=== PATIENT | male | born 1980 | race Two or more races ===

== ENCOUNTER 2024-09-05 11:55 | Emergency (ER) | payer MEDICAID, SELFPAY ==
[2024-09-05 11:56] VITALS: BMI 38.2
[2024-09-05 12:12] VITALS: BP 143/93; PULSE 91; RESP 18; TEMP 38.6; O2SAT 97
--- NOTE | 2024-09-05 12:22 | PD.EDURI ---
Upper Respiratory Inf. RME/HPI General Chief Complaint: Flu Like Symptoms Stated Complaint: FEVER, CHILLS, BODYACHES, TAPIA Time Seen by Provider: 09/05/24 12:01 Arrival date/time: 09/05/24 11:55 43-year-old male presents the emergency department complains of fever, body aches, chills, headache runny nose and congestion as well as nausea vomiting. Patient for symptoms onset 3 days ago Limitations: no limitations Related Data Previous Rx's ?Medication ?Instructions ?Recorded hydrocodone 5 mg-acetaminophen 325 1 tab PO Q6H #10 tabs 12/21/ mg tablet ([place]) ibuprofen 600 mg tablet 600 mg PO Q8H PRN fever or pain 10/25/21 #30 tabs meclizine 25 mg tablet 25 mg PO QDAY PRN dizziness #10 03/04/22 tabs ondansetron 4 mg disintegrating 4 mg PO Q6H PRN nausea and 09/05/24 tablet vomiting #14 tabs Allergies Allergy/AdvReac Type Severity Reaction Status Date / Time ceftriaxone Allergy Severe RASH Verified 09/05/24 11:59 Review of Systems Review of Systems Systems Reviewed: All systems reviewed, normal except as documented Constitutional Constitutional: Reports system reviewed and no additional complaints, except as documented, Reports body ache(s), Reports chills, Reports fatigue, Reports fever(s) and Reports headache(s) Eyes Eyes: Reports system reviewed and no additional complaints, except as documented and Denies blurry vision ENT Ears, Nose, Mouth, and Throat: Reports system reviewed and no additional complaints, except as documented, Reports headache(s), Reports nasal congestion and Reports nasal discharge Cardiovascular Cardiovascular: Reports system reviewed and no additional complaints, except as documented, Denies chest pain and Denies dyspnea Respiratory Respiratory: Reports system reviewed and no additional complaints, except as documented, Denies chest congestion, Denies cough and Denies dyspnea Gastrointestinal Gastrointestinal: Reports system reviewed and no additional complaints, except as documented, Denies abdominal pain, Reports loose stools, Denies melena, Reports nausea, Denies tenesmus and Reports vomiting Integumentary/Breasts Skin/Breast: Reports system reviewed and no additional complaints, except as documented and Denies rash Neurologic Neurologic: Reports system reviewed and no additional complaints, except as documented, Reports as per HPI and Reports headache(s) Endocrine Endocrine: Reports fatigue Past Medical History Past Medical History CARDIAC: Negative Congestive Heart Failure RESPIRATORY: Negative Chronic Obstructive Pulmonary Disease (COPD) GENITOURINARY: Negative Renal Disease ENDOCRINE: Negative Diabetes Mellitus Type 1 or Diabetes Mellitus Type 2 PSYCHO/SOCIAL: Positive Anxiety Social History SMOKING STATUS: Never smoker ED Exam General Limitations: Present no limitations General appearance: Present alert and in no apparent distress Head Head exam: Present atraumatic Eye Eye exam: Present normal appearance, PERRL and EOMI; Absent conjunctival injection ENT ENT exam: Present normal exam, normal oropharynx and mucous membranes moist Neck Neck exam: Present normal inspection, full ROM and trachea midline Chest Chest inspection: Present normal inspection and symmetric chest wall rise Respiratory Respiratory exam: Present normal lung sounds bilaterally; Absent respiratory distress Cardiovascular Cardiovascular exam: Present regular rate, normal rhythm and normal heart sounds Abdominal Exam Abdominal exam: Present soft and normal bowel sounds; Absent distention, tenderness, guarding, rebound or rigidity Extremities Exam Extremities exam: Present normal inspection and full ROM Back Exam Back exam: Present normal inspection and full ROM Neurological Exam Neurological exam: Present alert, oriented X3, CN II-XII intact, normal gait and reflexes normal; Absent motor sensory deficit Psychiatric Psychiatric exam: Present normal affect and normal mood Skin Skin exam: Present warm, dry, intact and normal color; Absent rash Course Quality Measures none Orders Category Date Time Status Bedside Influenza A&B Antigen Test NOW Care 09/05/24 12:24 Completed Ibuprofen Tab [Motrin Tab] Med 09/05/24 12:24 Discontinued 800 mg PO X1 ONE Metoclopramide Inj [Reglan Inj] Med 09/05/24 12:24 Discontinued 10 mg IM X1 ONE Vital Signs Vital signs: Vital Signs Temperature 101.4 F H 09/05/24 12:12 Pulse Rate 91 09/05/24 12:12 Respiratory Rate 18 09/05/24 12:12 Blood Pressure 143/93 H 09/05/24 12:12 Pulse Oximetry (%) 97 09/05/24 12:12 Oxygen Delivery Method Room Air 09/05/24 12:12 O2 saturation 97% room air within normal limits Upper Respiratory Infection MDM Narrative MDM Narrative:: 43-year-old male with no significant medical problems presents the emergency department complains of fever, body aches, chills, headache runny nose and congestion as well as nausea vomiting. Patient for symptoms onset 3 days ago On exam despite patient having a fever patient does not appear ill or toxic Patient checked for the flu which came back positive immediately Symptoms are highly consistent with influenza Patient given ibuprofen for fever and bodyaches and patient given Reglan for nausea and vomiting Patient discharged home in no distress to follow-up with primary care doctor in the next 24 to 48 hours and for any worsening symptoms to return to the ER immediately Patient data External records reviewed:: [facility] previous records Clinical information provided by:: patient Social determinants that could affect healthcare access:: none Patient has the following chronic illnesses:: None How is presenting disease/condition affected by chronic disease/condition?: no chronic disease Evaluation data The following diagnostics were reviewed and interpreted by me:: lab results Lab and/or radiology exams considered but not ordered:: Labs obtained Interpretation Summary: Reviewed by me Medications / Prescriptions Medications or Prescriptions considered but not ordered:: Given Medication administrations:: Medication Administration History Discontinued Medications Ibuprofen (Ibuprofen Tab 400 Mg Tablet) 800 mg PO X1 ONE Stop: 09/05/24 12:25 Last Admin: 09/05/24 12:29 Dose: 800 mg Documented By: Metoclopramide HCl (Metoclopramide Inj 5 Mg/Ml Vial 2 Ml) 10 mg IM X1 ONE; Protocol Stop: 09/05/24 12:25 Last Admin: 09/05/24 12:29 Dose: 10 mg Documented By: Given Consultations Consultation(s) initiated? (list below): No Diagnosis Upper Respiratory Differential Diagnosis: upper respiratory infection, otitis media, sinusitis, viral infection, bronchitis and pharyngitis Most likely diagnosis given after review of the tests above:: URI Admission Indicated Admission indicated?: not indicated Admission Request Was there a request for admission?: No Disposition Plan Disposition Plan: Discharge Discharge Attestation Discharge Attestation: The patient and all family members were given an opportunity to ask questions and understood the discharge instructions. Discharge instructions specifically effects, indications for sooner follow up or return to the emergency department, and the expected course of current diagnosis. Patient condition: Stable Discharge Plan Plan Patient Disposition: HOME (Self Care) Disposition Comment: Stable Prescriptions/Referrals Prescriptions/Med Rec: New ondansetron 4 mg tablet,disintegrating 4 mg PO Q6H PRN (Reason: nausea and vomiting) Qty: 14 0RF No Action meclizine 25 mg tablet 25 mg PO QDAY PRN (Reason: dizziness) Qty: 10 0RF hydrocodone-acetaminophen [[place]] 5-325 mg tablet 1 tab PO Q6H MDD 2 tabs Qty: 10 0RF ibuprofen 600 mg tablet 600 mg PO Q8H PRN (Reason: fever or pain) Qty: 30 0RF Problem List Clinical Impression: Influenza Patient/Caregiver Discharge Instructions Education Materials: ED Influenza (Adult) Additional Instructions: Please follow up with your primary care doctor in the next 24-48hrs for any worsening symptoms return here immediately Print Language: Chinese Stand Alone Forms: [facility] Award Info., Patient Portal Info Letter PA/AIRPLANE NAVIGATOR Supervising Physician PA/AIRPLANE NAVIGATOR Supervising Physician: Dr Humphries
[2024-09-05] MEDS: METOCLOPRAMIDE INJ 5 MG/ML VIAL 2 ML 10 MG IM (12:29)
[2024-09-05] MEDS: IBUPROFEN TAB 400 MG TABLET 800 MG PO (12:29)
== END 2024-09-05 12:36 | disposition home or self-care (01) ==
LOC: SERX 12:38
PROVIDERS: Emergency Provider Emergency Medicine; PCP Family Medicine
DX: J11.1 Influenza due to unidentified influenza virus with other respiratory manifestations (principal)
CPT/HCPCS: 87400; 96372; 99283; J2765; A9270